=== PATIENT | male | born 1950 | race Asian ===

== ENCOUNTER → 2018-09-06 | Outpatient (CLI) | payer MEDICARE, MEDICAID ==
[~2018-09-06] MED LIST: ADVI100T PO; LISI10TA4 PO; PYRI1TAB5 PO
--- NOTE | 2018-09-06 10:49 | REP ---
LUMBAR SPINE, SIX VIEWS: HISTORY: Disc degeneration. There is no acute fracture. The L3-4 through L5-S1 intervertebral discs are decreased in height consistent with disc degeneration. Osteophytes are present on L3-5. There is narrowing of the L3-4 through L5-S1 facet joints. There are 3 mm of grade 1 spondylolisthesis of L3 on 4. IMPRESSION:Degenerative change as described above. Electronically Signed by Carl Winters MD 09/06/2018 10:51 A
--- NOTE | 2018-09-06 11:47 | REP ---
LEFT ANKLE, FOUR VIEWS: HISTORY: Injury. There are old healed fractures of the distal tibia and fibula. There is no acute fracture or dislocation. The joint space is normal in appearance. An osteophyte is present on the anterior superior talus. A calcified density is present adjacent to the osteophyte. This may represent ligamentous or tendon calcification. IMPRESSION: There is no acute fracture or dislocation. Electronically Signed by Carl Winters MD 09/06/2018 11:48 A
--- NOTE | 2018-09-06 13:16 | REP ---
AP AND LATERAL HIP/PELVIS, THREE VIEWS: HISTORY: Hip pain. There is no acute fracture or dislocation. There is mild narrowing of the hip joint spaces with associated sclerosis. IMPRESSION: Degenerative change as described above. Electronically Signed by Carl Winters MD 09/06/2018 01:20 P
--- NOTE | 2018-09-06 13:35 | REP ---
PARTIAL AP AND LATERAL LEFT KNEE: HISTORY: Knee pain. There is no acute fracture or dislocation. There is severe narrowing of the medial knee joint space and mild narrowing of the lateral knee joint space. There is mild narrowing of the patellofemoral joint space. Osteophytes are present on the femur, tibia and patella. IMPRESSION: Degenerative change as described above. Electronically Signed by Carl Winters MD 09/06/2018 01:36 P
== END ==
LOC: M LRY 09:03
PROVIDERS: ATTEND Nurse Practitioner Adult Health
DX: M25.762 Osteophyte, left knee (principal); M25.78 Osteophyte, vertebrae; M43.16 Spondylolisthesis, lumbar region; M51.36 Other intervertebral disc degeneration, lumbar region; M51.37 Other intervertebral disc degeneration, lumbosacral region; M16.12 Unilateral primary osteoarthritis, left hip; S94 Injury of nerves at ankle and foot level; S87.02XS Crushing injury of left knee, sequela; M25.572 Pain in left ankle and joints of left foot

== ENCOUNTER 2018-09-22 20:51 | Inpatient (IN) | payer MEDICARE, MEDICAID ==
[~2018-09-22] VITALS: Ht 167.6 cm; Wt 65.9 kg
[2018-09-22] MEDS ORDERED: ADVI100T PO (21:01)
[2018-09-22] MEDS ORDERED: LISI10TA4 PO (21:01)
[2018-09-23] VITALS (8 sets, daily range): BP systolic 119–165; BP diastolic 74–88
[2018-09-23 00:32] LABS: BASO % 0.5 % (0.0-1.0); EOS % 0.4 % (0.0-3.0); HEMATOCRIT 35.6 % (42.0-52.0); LYMPH # 1.4 10^3/uL (1.5-4.5); LYMPH % 17.3 % (24.0-44.0); MEAN CORPUSCULAR HGB CONC 33.7 g/dl (32.0-36.5); MONO # 0.4 10^3/uL (0.0-0.8); MONO % 4.6 % (0.0-5.0); NEUTROPHILS # 6.1 10^3/uL (1.8-7.7); NEUTROPHILS % 77.1 % (36.0-66.0); PLATELET COUNT, AUTOMATED 165 10^3/uL (150-450); RED BLOOD COUNT 3.87 10^6/uL (4.30-6.10); WHITE BLOOD COUNT 7.9 10^3/uL (4.0-10.0)
[2018-09-23 00:47] LABS: INR 0.95; PARTIAL THROMBOPLASTIN TIME 30.9 SECONDS (25.4-37.6); PROTHROMBIN TIME 12.8 SECONDS (12.1-14.4)
[2018-09-23 00:55] LABS: ALBUMIN 3.3 GM/DL (3.2-5.2); ALT/SGPT 21 U/L (12-78); BILIRUBIN,DIRECT < 0.1 MG/DL (0.0-0.2); BILIRUBIN,TOTAL 0.5 MG/DL (0.2-1.0); BLOOD UREA NITROGEN 23 MG/DL (7-18); CARBON DIOXIDE LEVEL 25 MEQ/L (21-32); CHLORIDE LEVEL 108 MEQ/L (98-107); CREATININE FOR GFR 0.75 MG/DL (0.70-1.30); GLOMERULAR FILTRATION RATE > 60.0 (>49); GLUCOSE, FASTING 99 MG/DL (70-100); POTASSIUM SERUM 5.3 MEQ/L (3.5-5.1); SODIUM LEVEL 138 MEQ/L (136-145); TOTAL PROTEIN 6.7 GM/DL (6.4-8.2)
[2018-09-23] MEDS ORDERED: ISOVUE-370 76% 100ML VIAL (Q9967) As Ordered ONE (01:14)
[2018-09-23] MEDS ORDERED: ACETAMINOPHEN TAB 650MG DOSE (2X325MG) PO PRN (04:30)
[2018-09-23 07:14] LABS: HEMATOCRIT 36.6 % (42.0-52.0); HEMOGLOBIN 12.1 g/dl (13.5-17.5); MEAN CORPUSCULAR HEMOGLOBIN 29.8 pg (27.0-33.0); MEAN CORPUSCULAR HGB CONC 33.1 g/dl (32.0-36.5); MEAN CORPUSCULAR VOLUME 90.1 fl (80.0-96.0); PLATELET COUNT, AUTOMATED 176 10^3/uL (150-450); RED BLOOD COUNT 4.06 10^6/uL (4.30-6.10); WHITE BLOOD COUNT 6.6 10^3/uL (4.0-10.0)
[2018-09-23 07:44] LABS: BLOOD UREA NITROGEN 18 MG/DL (7-18); CALCIUM LEVEL 8.3 MG/DL (8.8-10.2); CARBON DIOXIDE LEVEL 28 MEQ/L (21-32); CHLORIDE LEVEL 109 MEQ/L (98-107); CREATININE FOR GFR 0.72 MG/DL (0.70-1.30); GLOMERULAR FILTRATION RATE > 60.0 (>49); GLUCOSE, FASTING 94 MG/DL (70-100); SODIUM LEVEL 140 MEQ/L (136-145)
[2018-09-23] MEDS ORDERED: ceFAZolin 2 GM/D5W 50 ML IV BAG (J0690 PER 500MG) As Ordered ONE (08:42)
[2018-09-23] MEDS ORDERED: MIDAZOLAM INJ 2 MG/2 ML VIAL (J2250) As Ordered ONE (08:45)
[2018-09-23] MEDS ORDERED: fentaNYL 100 MCG/2 ML INJECTION (J3010) As Ordered ONE (08:45)
[2018-09-23] MEDS ORDERED: PROPOFOL 200 MG/20 ML VIAL As Ordered ONE (09:54)
[2018-09-23] MEDS ORDERED: ONDANSETRON 4MG/2ML VIAL (J2405) As Ordered ONE (09:54)
[2018-09-23] MEDS ORDERED: LIDOCAINE 2% INJ 100 MG/5 ML SDV (FOR ANES.) As Ordered ONE (09:54)
[2018-09-23] MEDS ORDERED: dexameTHASONE 4 MG/ML 1ML VIAL (J1100) As Ordered ONE (09:54)
--- NOTE | 2018-09-23 10:03 | HPE ---
DATE OF ADMISSION: 09/23/2018 REASON FOR ADMISSION: Posterior urethral disruption in 1988 requiring multiple internal optical urethrotomies an urethral dilations, and neurogenic bladder. HISTORY OF PRESENT ILLNESS The patient is a 68-year-old [place] gentleman who comes into the emergency room with gross hematuria and inability to void. 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 This was originally just dealt with a cystotomy and then a [place] surgeon performed endoscopic cauterization with placement of a catheter and then multiple urethral dilations and internal optical urethrotomies were done including in 1990, 1992, 1993 and 1994. He also has urinary incontinence and this is normally managed by a penile clamp. Prior to the gross hematuria, he denied any burning with urination, slowing of the urinary stream, or other significant irritative or obstructive voiding symptoms. He denies any problems with recurrent urinary tract infections and says normally when the urine comes out it is with a normal stream and he wears a clamp because of the incontinence. PAST MEDICAL HISTORY: High blood pressure. PAST SURGICAL HISTORY: Amputation of his left arm after the accident, urethral surgeries as above, and he had a broken bone in his leg. MEDICATIONS: - Lisinopril ALLERGIES: No known drug allergies. SOCIAL HISTORY: He quit smoking cigarettes about 12 years ago and does not drink alcohol appreciably. He has lived in the for approximately 10 years. He is now living with his [id number] who is working at [employer]. FAMILY HISTORY: Noncontributory but his mother did of a heart attack at the age of 90. REVIEW OF SYSTEMS: 12 system review was otherwise negative except for joint pain, for which he takes as needed medications. He denies any chest pain, shortness of breath, abdominal pain or pressure, significant constipation or bowel issues. PHYSICAL EXAMINATION: This is a well-developed, well-nourished gentleman in no apparent respiratory distress. He is alert and oriented times three. 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 He is afebrile at 98.5. His pulse is 61. His respiratory rate is 18 and his pulse ox is 99% on room air. His head is normocephalic, atraumatic. His eyes are PERRLA. His neck is supple, and his trachea is midline. He has no significant supraclavicular or cervical adenopathy. His heart has a regular rate and rhythm and his lungs are clear to auscultation and percussion. His abdomen shows some very mild diffuse tenderness without any rebound or guarding. A Friedman catheter is in place draining bright red urine. His extremities show no cyanosis, clubbing or edema, and he does have a left arm amputation. LABORATORY DATA: His white blood count is 6.6. His hemoglobin and hematocrit are 12.1 and 36.6. His platelets are 176. His BUN is 18 and his creatinine is 0.72. His potassium was elevated last night at for 5.3 but it was repeated and is 4.0. His serum calcium is normal. A microscopic urinalysis showed too numerous to count red blood cells and no significant white blood cells. The urine culture is pending. CT scan of the abdomen and pelvis dated 09/23/2018 shows distension of the urinary bladder, most likely with blood clots. There is mild prostatic enlargement and the course of the Friedman catheter extends part of the right rather than centered through the middle of the prostate suggesting a large left prostatic or bladder mass, but they are saying that they cannot rule out an intraureteral course through the prostate. I discussed this at length with the patient through interpretation with his [id number] today and we have decided to bring the patient to the operating room for cystoscopy and clot irrigation and to make sure that there is no significant mass and that the findings on the CT scan are just secondary to scar tissue. If needed, we will also place a three-way Friedman catheter and start continuous bladder irrigation. If a stricture is seen, we will plan on dealing with it or take any biopsies as necessary. All different options, alternatives, risks, and benefits were discussed at length with the patient and his [id number] and informed consent was obtained in both verbal and written form. IMPRESSION: 1. Gross hematuria and clot retention in a patient with a posterior urethral disruption in 1988 with at least seven surgical procedures since that with dilations and openings of strictures, but the patient has been doing well for the last several years. 2. High blood pressure. 3. Joint pain. 4. Left arm amputee. PLAN: We are going to bring the patient urgently to the operating room to remove the Friedman catheter that is in place and plan cystoscopy, clot irrigation, possible internal optical urethrotomy, dilation, and/or biopsies.
--- NOTE | 2018-09-23 10:28 | REP ---
CT ABDOMEN AND PELVIS WITH IV CONTRAST: TECHNIQUE: Axial contrast enhanced images from the lung bases to the pubic symphysis using 100 mL Isovue 370 intravenous contrast material with multiplanar reformations. Visualized lung bases demonstrate no infiltrate. Liver is unremarkable. The gallbladder demonstrates gallstones in the region of the neck of the gallbladder, but there is no gallbladder wall edema and no evidence of biliary dilatation. The spleen is unremarkable. The adrenal glands are mildly thickened without a mass. The pancreas demonstrates no mass. There is a cyst in the upper pole of the right kidney with a maximum diameter of approximately 2.3 cm. A cyst in the anterior mid left kidney measures 1.1 cm. There is no hydronephrosis bilaterally. There is no abdominal aortic aneurysm. There is no adenopathy. There is no free air or free fluid. No bowel wall thickening is seen. The appendix is not inflamed. Urinary bladder contains a Friedman catheter. Lobulated soft tissue in the bladder has a maximum diameter of 6.4 cm. This probably represents a large blood clot. Prostate is enlarged. There is also a small amount of air and fluid in the bladder. Friedman catheter deviates to the right of midline in the region of the prostate suggesting a left sided mass involving the prostate or base of bladder. Extra urethral course through the prostate is not excluded. IMPRESSION: Gallstones of the gallbladder without evidence of gallbladder wall edema or biliary dilatation. No free air or free fluid. No evidence of appendicitis. In the bladder there is a lobulated dense filling defect 6.4 cm in maximum diameter most consistent with a blood clot. Friedman catheter is seen deviated to the right of midline as it courses through the prostate and into the bladder. This could indicate a large mass involving the left prostate or base of bladder. Extra urethral course of Friedman catheter is not excluded. Preliminary report is provided by [facility] at the time of the exam. Electronically Signed by Slick Foley MD 09/23/2018 03:14 P
[2018-09-23] MEDS ORDERED: fentaNYL 100 MCG/2 ML INJECTION (J3010) IV PRN (11:15)
[2018-09-23] MEDS: LISINOPRIL 10 MG TAB PO SCH (11:21)
--- NOTE | 2018-09-23 14:23 | REP ---
KUB ABDOMEN AND PELVIS: KUB film of abdomen and pelvis performed. There is no evidence of small bowel obstruction. No dilated bowel loops are seen. Vague calcifications in the right upper quadrant are compatible with gallstones. There are mild degenerative changes of the spine. There is a Friedman catheter present and the distal end is deviated to the right. Electronically Signed by Slick Foley MD 09/23/2018 03:55 P
[2018-09-24 04:00] VITALS: BP 147/71
[2018-09-24 06:39] LABS: HEMATOCRIT 35.4 % (42.0-52.0); MEAN CORPUSCULAR HEMOGLOBIN 30.8 pg (27.0-33.0); MEAN CORPUSCULAR HGB CONC 33.9 g/dl (32.0-36.5); PLATELET COUNT, AUTOMATED 177 10^3/uL (150-450); RED BLOOD COUNT 3.89 10^6/uL (4.30-6.10); WHITE BLOOD COUNT 9.7 10^3/uL (4.0-10.0)
[2018-09-24 06:54] LABS: BLOOD UREA NITROGEN 24 MG/DL (7-18); CALCIUM LEVEL 8.5 MG/DL (8.8-10.2); CARBON DIOXIDE LEVEL 28 MEQ/L (21-32); CHLORIDE LEVEL 108 MEQ/L (98-107); CREATININE FOR GFR 0.95 MG/DL (0.70-1.30); GLOMERULAR FILTRATION RATE > 60.0 (>49); GLUCOSE, FASTING 98 MG/DL (70-100); POTASSIUM SERUM 4.1 MEQ/L (3.5-5.1); SODIUM LEVEL 141 MEQ/L (136-145)
--- NOTE | 2018-09-24 08:56 | RO ---
DATE OF PROCEDURE: 09/23/2018 PREOPERATIVE DIAGNOSES: Gross hematuria and history of a posterior urethral rupture necessitating multiple surgical procedures with strictures. POSTOPERATIVE DIAGNOSES: Gross hematuria and history of a posterior urethral rupture necessitating multiple surgical procedures with strictures. PROCEDURE: Cystoscopy, clot irrigation, urethral dilation and complex Friedman catheter placement. SURGEON: Dr. Edwina Olmstead ANESTHESIA: MAC. MEDICATIONS: 2 grams preoperatively. DRAINS: #22-[place] three-way Friedman catheter. FINDINGS: Significant scar tissue in the posterior prostatic urethra pushing up on the bladder neck. INDICATIONS FOR PROCEDURE: The patient is a 68-year-old [place] gentleman who had an accident in 1986 were he had a posterior urethral rupture. Originally he had cystoscopy done and a Friedman catheter placed. It sounds like he had a suprapubic tube for quite some time and then this had been managed over the years by dilations and openings of urethral strictures. He had done fairly well for the last several years, although he is incontinent of urine and uses a urethral clamp. He denied any significant symptoms prior to the gross hematuria. A microscopic urinalysis showed too numerous to count red blood cells and no significant white blood cells. A Friedman catheter had been placed in the emergency room but was not draining well and a CT scan showed that this could be possibly going through the prostate since it appeared to have an abnormal placement, although it was in the bladder. After discussing all different options, alternatives, risks, and benefits, it was decided to bring the patient to the operating room for at least clot irrigation now and to make sure a three-way catheter could be placed in the right position for management now. It was discussed that further operative procedures may be needed. PROCEDURE: The patient was brought into the operating room. Sequential compression devices were in place and preoperative antibiotics were given. Anesthesia was induced. She was then placed in the lithotomy position and careful attention was paid that his pressure points were well padded and protected. He was prepped and draped in the usual fashion. Originally I tried to place a #21-[place] cystoscope and the urethra was noted to be open without any evidence of lesions or strictures until I got to the prostatic urethra where again a mass effect was coming from the right side posteriorly pushing up. I was unable to pass the scope. I was able to place a wire at this time. I was then able to place a flexible cystoscope over the wire through this area and the bladder was filled with blood clots. I was then able to use dilators and I dilated the urethra to a #20-[place] although was very difficult to get past the scarred area almost at the level of the bladder neck. It was like going over a ridge until you could enter into the bladder. I was then finally able to place a #17-[place] cystoscope over the wire under direct vision and hand irrigate the bladder for quite some time. At the conclusion of the procedure, I did not see any definite stones or bladder masses but there was still decreased visualization and it was very hard to see the base of the bladder because of the scar tissue. At this point, I was able to place a #22-[place] three-way Friedman catheter by using the [employer] difficult urologist tray and placing a catheter guide within the catheter and placing this over the wire. Once this was in the bladder, hand irrigation was again done and 30 mL were placed in the balloon. The urine at this point was clear and he was started on low continuous bladder irrigation. The patient will probably require another flexible cystoscopy in the future and at some point resection of this scar tissue may be necessary if he continues to have difficulties with gross hematuria but he actually sounds as though he has been doing fairly well. I would also make sure to check a postvoid residual in the future. NA
[2018-09-24 09:14] VITALS: BP 145/76
[2018-09-24] MEDS: LISINOPRIL 10 MG TAB PO SCH (09:14)
[2018-09-24] MEDS ORDERED: PYRI1TAB5 PO (09:32)
--- NOTE | 2018-09-24 11:08 | IPNPDOC ---
Text Note Date of Service The patient was seen on 09/24/18. NOTE The patient's urine has been clear overnight office CBI. He has some discomfort from the catheter but otherwise has no significant complaints. Physical examination: He is afebrile with his MAXIMUM TEMPERATURE of 98.3. His pulse is 67. His blood pressures 145/76. His no CVA tenderness and his abdomen is soft and nontender. His urine is crystal clear. Extermination no cyanosis clubbing or edema. Impression: -Gross hematuria and clot retention in a patient with significant scar tissue in his urethra after posterior urethral disruption many years ago status post multiple procedures -Urinary incontinence in a patient who does use urethral clamp Plan: -Discharge home with Friedman catheter in place and we will do a fill and pull next week in the office. The patient should see someone who specializes in urethral issues in the future because he may need resection of the scar tissue in the urethra or a urethral reconstruction if he continues to have issues A-FIB/CHADSVASC A-FIB History Current/History of A-Fib/PAF?: No Current Oral Anticoagulant The: No VS,Fishbone, I+O VS, Fishbone, I+O Laboratory Tests 09/24/18 06:05 Red Blood Count 3.89 L, Mean Corpuscular Volume 91.0, Mean Corpuscular Hemoglobin 30.8, Mean Corpuscular Hemoglobin Concent 33.9, Red Cell Distribution Width 13.0, Calcium Level 8.5 L Vital Signs Date Time Temp Pulse Resp B/P (MAP) Pulse Ox O2 Delivery O2 Flow Rate FiO2 09/24/18 09:14 67 145/76 (99) 09/24/18 04:00 98.3 16 98 09/23/18 03:29 Room Air I&O- Last 24 Hours up to 6 AM 09/24/18 06:00 Intake Total 1200 ml Output Total 1720 ml Balance -520 ml KAT AUGUST MD September 24, 2018 11:08
== END 2018-09-24 12:30 | disposition home or self-care (01) | DRG 696 ==
LOC: M ED 20:51 → M ED INP 09-23 02:52 → M MS4PR 09-23 04:15
PROVIDERS: ADMIT Specialist; ATTEND Specialist
PROC: 0TCB8ZZ Extirpation of Matter from Bladder, Via Natural or Artificial Opening Endoscopic (ICD-10-PCS; principal; 2018-09-23 08:00)
DX: R31.0 Gross hematuria (principal); Z87.891 Personal history of nicotine dependence; Z89.202 Acquired absence of left upper limb, unspecified level; N40.0 Benign prostatic hyperplasia without lower urinary tract symptoms; R32 Unspecified urinary incontinence

== ENCOUNTER → 2018-10-25 | Outpatient (CLI) | payer MEDICARE, MEDICAID ==
[2018-10-31 11:44] LABS: HEPATITIS C QUANTITATION HCV Not Detected IU/mL (.)
== END ==
LOC: M LAB 12:19
PROVIDERS: ATTEND Nurse Practitioner Adult Health
DX: B18.2 Chronic viral hepatitis C (principal); Z72.89 Other problems related to lifestyle

== ENCOUNTER → 2018-11-03 | Outpatient (CLI) | payer MEDICARE, MEDICAID ==
[~2018-11-03] MED LIST changes: +FLOM0.4C39 PO
--- NOTE | 2018-11-03 15:52 | REP ---
Chest x-ray: Two views. History: Urethral stricture. Findings: The lungs are well inflated and clear. The heart is not enlarged. Thoracic aorta is tortuous. Pleural angles are sharp. Pulmonary vasculature is not increased. There are degenerative changes in the thoracic spine. The patient appears to be status post amputation of the left arm just below the shoulder. There is evidence of enlargement of the left lobe of the thyroid deviating the trachea to the right above the thoracic inlet. Impression: No active cardiopulmonary disease. Left-sided goiter suspected. Electronically Signed by Jose E Roper MD 11/03/2018 04:54 P
== END ==
LOC: M RAD 13:28
PROVIDERS: ATTEND Urology
DX: Z01.818 Encounter for other preprocedural examination (principal); N35.911 Unspecified urethral stricture, male, meatal; M51.34 Other intervertebral disc degeneration, thoracic region

== ENCOUNTER 2018-11-10 10:02 | Day surgery (SDC) | payer MEDICARE, MEDICAID ==
[~2018-11-10] VITALS: Ht 167.6 cm; Wt 63.5 kg
[~2018-11-10 10:02] MED LIST changes: +LIDOCAINE 1% MDV 20ML VIAL SQ PRN; +LR 1,000 ML IV ONE
[2018-11-10] MEDS ORDERED: fentaNYL 100 MCG/2 ML INJECTION (J3010) As Ordered ONE (11:54)
[2018-11-10] MEDS ORDERED: MIDAZOLAM INJ 2 MG/2 ML VIAL (J2250) As Ordered ONE (11:54)
[2018-11-10] MEDS ORDERED: LIDOCAINE 2% INJ 100 MG/5 ML SDV (FOR ANES.) As Ordered ONE (11:55)
[2018-11-10] MEDS ORDERED: PROPOFOL 200 MG/20 ML VIAL As Ordered ONE (11:56)
[2018-11-10] MEDS ORDERED: LIDOCAINE 2% 5ML JELLY UROJET As Ordered ONE (11:56)
[2018-11-10] MEDS ORDERED: ONDANSETRON 4MG/2ML VIAL (J2405) As Ordered ONE (11:58)
[2018-11-10] MEDS ORDERED: cefTRIAXone SOD 1 GM in D5W MINI-BAG PLUS 50 ML IV ONE (12:15)
[2018-11-10] MEDS ORDERED: KETAMINE HCL 200 MG/20 ML VIAL As Ordered ONE (12:31)
[2018-11-10 14:15] VITALS: BP 153/76
--- NOTE | 2018-11-13 09:38 | RO ---
DATE OF PROCEDURE: 11/10/2018 PREPROCEDURE DIAGNOSIS: Urethral stricture. POSTPROCEDURE DIAGNOSIS: Urethral stricture. PROCEDURE: Cystotomy, direct visual internal urethrotomy. SURGEON: Stanley Deng MD ACADEMIC HOSPITALIST: None. ANESTHESIA: Monitored anesthesia care (MAC). OPERATIVE INDICATIONS: This is a 68-year-old male who had urethral trauma several years ago and has subsequently had several urethral reconstructive surgeries. On recent office cystoscopy for urinary retention he was found to have recurrent bulbar urethral stricture and was dilated at that time. He was brought to the operating room today for above-listed procedure. DESCRIPTION OF PROCEDURE: The patient was brought to the operating room and MAC anesthesia was administered. Prophylactic antibiotics were infused. He was then placed in dorsal lithotomy position and prepped and draped in the usual sterile fashion. At this point, an urethrotome was inserted into the urethral meatus and advanced towards the bladder. Of note, at the level of the bulbar urethra there was a mild stricture at this point indicating that the dilation actually worked pretty well for him. I was able to advance the scope into the bladder. I then pulled the scope back and incised the stricture first at 12 o'clock, but of note, the majority of the narrowing appeared to be at 6 o'clock. I therefore did the majority of the incising at 6 o'clock. Once done, the bulbar urethra was wide open. There was mild bleeding but I did not cauterize for fear of recurrent stricture. Prior to removing the urethrotome, I advanced the wire into the bladder. I then removed the urethrotome and used the wire to advance an 18 [place] catheter into the bladder. The balloon was filled with 10 mL of sterile water and then the wire was removed, and this marked conclusion of the procedure. The catheter was connected to gravity drainage. The patient was taken out of dorsal lithotomy position, awakened from anesthesia and transported to the recovery room in stable condition. Estimated blood loss: 5 mL. Complications: None. Specimens: None. Plan: The patient will followup in clinic next week for catheter removal and voiding trial. NA
== END 2018-11-10 14:20 | disposition home or self-care (01) ==
LOC: M SDC 10:02
PROVIDERS: ATTEND Urology
DX: N35.919 Unspecified urethral stricture, male, unspecified site (principal); I10 Essential (primary) hypertension; Z79.899 Other long term (current) drug therapy; I73.9 Peripheral vascular disease, unspecified; N40.0 Benign prostatic hyperplasia without lower urinary tract symptoms
CPT/HCPCS: 52276; J0696; J2250; J2405; J3010

== ENCOUNTER → 2018-12-18 | Outpatient (CLI) | payer MEDICARE, MEDICAID ==
[~2018-12-18] MED LIST changes: -LIDOCAINE 1% MDV 20ML VIAL SQ PRN; -LR 1,000 ML IV ONE
== END ==
LOC: M SMT 09:44
PROVIDERS: ATTEND Nurse Practitioner Family
DX: Z12.5 Encounter for screening for malignant neoplasm of prostate (principal)
CPT/HCPCS: 36415; 51798; G0103; G0463

== ENCOUNTER 2018-12-25 06:56 | Day surgery (SDC) | payer MEDICARE, MEDICAID ==
[~2018-12-25] VITALS: Ht 167.6 cm; Wt 63.5 kg
[2018-12-25] MEDS ORDERED: NS 1,000 ML IV ONE (07:00)
[2018-12-25] MEDS ORDERED: LIDOCAINE 2% INJ 100 MG/5 ML SDV (FOR ANES.) As Ordered ONE (07:11)
[2018-12-25] MEDS ORDERED: PROPOFOL 200 MG/20 ML VIAL As Ordered ONE ×3 (07:11→08:42)
--- NOTE | 2018-12-25 09:01 | ROOR ---
Patient Name: Jose Antonio Lepe Procedure Date: 12/25/2018 8:04 AM Date of : 1950 Age: 68 Room: [facility] Gender: Male Note Status: Finalized Procedure: Colonoscopy Indications: High risk colon cancer surveillance: Personal history of colonic polyps Providers: Rian Vergara MD Referring MD: HAYLEY CERVANTES MD Requesting Provider: Medicines: Monitored Anesthesia Care Complications: No immediate complications. Procedure: Pre-Anesthesia Assessment: - Prior to the procedure, a History and Physical was performed, and patient medications and allergies were reviewed. The patient is competent. The risks and benefits of the procedure and the sedation options and risks were discussed with the patient. All questions were answered and informed consent was obtained. Patient identification and proposed procedure were verified by the physician, the nurse and the anesthesiologist in the procedure room. Mental Status Examination: alert and oriented. Airway Examination: normal oropharyngeal airway and neck mobility. Respiratory Examination: clear to auscultation. CV Examination: normal. Prophylactic Antibiotics: The patient does not require prophylactic antibiotics. Prior Anticoagulants: The patient has taken no previous anticoagulant or antiplatelet agents. ASA Grade Assessment: II - A patient with mild systemic disease. After reviewing the risks and benefits, the patient was deemed in satisfactory condition to undergo the procedure. The anesthesia plan was to use monitored anesthesia care (MAC). Immediately prior to administration of medications, the patient was re-assessed for adequacy to receive sedatives. The heart rate, respiratory rate, oxygen saturations, blood pressure, adequacy of pulmonary ventilation, and response to care were monitored throughout the procedure. The physical status of the patient was re-assessed after the procedure. The Colonoscope was introduced through the anus and advanced to the terminal ileum, with identification of the appendiceal orifice and IC valve. The colonoscopy was performed without difficulty. The patient tolerated the procedure well. The quality of the bowel preparation was good. The terminal ileum, ileocecal valve, appendiceal orifice, and rectum were photographed. Scope insertion time was 4 minutes. Scope withdrawal time was 8 minutes. The total duration of the procedure was 14 minutes. Findings: The perianal and digital rectal examinations were normal. The terminal ileum appeared normal. A 4 mm polyp was found in the ascending colon. The polyp was sessile. The polyp was removed with a cold snare. Resection and retrieval were complete. Verification of patient identification for the specimen was done by the physician and nurse using the patient's name, date and medical record number. Five sessile polyps were found in the transverse colon. The polyps were 3 to 6 mm in size. These polyps were removed with a cold snare. Resection and retrieval were complete. A 5 mm polyp was found in the recto-sigmoid colon. The polyp was sessile. The polyp was removed with a cold snare. Resection and retrieval were complete. Non-bleeding external and internal hemorrhoids were found during retroflexion. The hemorrhoids were medium-sized. Impression: - The examined portion of the ileum was normal. - One 4 mm polyp in the ascending colon, removed with a cold snare. Resected and retrieved. - Five 3 to 6 mm polyps in the transverse colon, removed with a cold snare. Resected and retrieved. - One 5 mm polyp at the recto-sigmoid colon, removed with a cold snare. Resected and retrieved. - Non-bleeding external and internal hemorrhoids. Recommendation: - Patient has a contact number available for emergencies. The signs and symptoms of potential delayed complications were discussed with the patient. Return to normal activities tomorrow. Written discharge instructions were provided to the patient. - High fiber diet. - Continue present medications. - Await pathology results. - Repeat colonoscopy in 3 - 5 years for surveillance based on pathology results. - Based on the biopsy results you will receive a phone call from GI clinic in 2-3 weeks to review the pathology results AND/OR your results will be faxed to your Primary care physician. - Return to primary care physician. Rian Vergara MD Rian Vergara MD 12/25/2018 9:01:17 AM Electronically signed by Rian Vergara MD Number of Addenda: 0 Note Initiated On: 12/25/2018 8:04 AM Estimated Blood Loss: Estimated blood loss was minimal.
[2018-12-25 09:20] VITALS: BP 180/96
== END 2018-12-25 09:26 | disposition home or self-care (01) ==
LOC: M OPP 06:56
PROVIDERS: ATTEND Internal Medicine Gastroenterology
DX: D12.2 Benign neoplasm of ascending colon (principal); D12.3 Benign neoplasm of transverse colon; D12.7 Benign neoplasm of rectosigmoid junction; K64.8 Other hemorrhoids; Z86.010 Personal history of colon polyps